=== PATIENT | male | born 1995 | race Two or more races ===

== ENCOUNTER 2024-10-26 19:51 | Outpatient (CLI) | payer OTHER, SELFPAY ==
--- NOTE | 2024-11-04 08:33 | W.PM.SLEEP ---
Sleep Study Details Details Interpreting Provider: Tj Date of Sleep Study: 10/26/24 Sleep Study Details: STUDY TYPE:? Home unattended ? BMI:? 37.8 ORDERING PROVIDER: Aliyah Bates INDICATION:? Concern about sleep apnea ? SLEEP SUMMARY:? 194 minutes monitored RESPIRATORY SUMMARY:? AHI 3.7, low oxygen 90 Snoring 12.9% PERIODIC LIMB MOVEMENTS OF SLEEP: Not recorded CARDIAC:? Range 48-104, mean 56 beats per minute IMPRESSION: This study is not demonstrate clinically significant obstructive sleep apnea. Diagnosis at this time is primary snoring and excessive daytime sleepiness RECOMMENDATION: If sleep disorder is strongly suspected recommend an in-lab study.
== END 2024-10-26 19:52 | disposition home or self-care (01) ==
LOC: SLEEP 19:53
PROVIDERS: PCP Family Medicine; Visit Provider Otolaryngology
DX: R06.83 Snoring (principal); G47.19 Other hypersomnia
CPT/HCPCS: 95806